=== PATIENT | female | born 1955 | race Caucasian/White ===

== ENCOUNTER 2020-02-25 00:32 | Emergency (ER) | payer MEDICARE ==
[2020-02-25 00:38] VITALS: BP 115/78; PULSE 102; RESP 18; TEMP 98
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
== END 2020-02-25 03:26 | disposition home or self-care (01) ==
LOC: EC 00:32
DX: Z01.89 Encounter for other specified special examinations (principal); Z91.018 Allergy to other foods; Z88.8 Allergy status to other drugs, medicaments and biological substances
CPT/HCPCS: 99283